=== PATIENT | male | born 1965 | race Caucasian/White ===

== ENCOUNTER 2019-10-29 07:27 | Outpatient (RCR) | payer OTHER, SELFPAY | END 2019-10-29 23:59 | disposition home or self-care (01) | LOC: ANHAUDIO 07:27 | PROVIDERS: PCP Family Medicine Adolescent Medicine; Visit Provider Family Medicine Adolescent Medicine | DX: Z46.1 Encounter for fitting and adjustment of hearing aid (principal) | CPT/HCPCS: 99199 ==

== ENCOUNTER 2023-03-07 00:25 | Day surgery (SDC) | payer BC, SELFPAY ==
[2023-02-28 09:08] VITALS: BMI 23.7
--- NOTE | 2023-03-06 13:12 | PM.HPGS ---
History of Present Illness History of Present Illness Consent: Risks, benefits, and alternatives have been discussed and questions answered. Patient agrees to proceed with procedure. Chief complaint: neoplasm screening Narrative: Kodak Richards is a 57 year old male Referred for colon cancer screening. Review of Systems Review of Systems: All systems reviewed & are unremarkable except as noted in HPI and below PMFSH Surgical History Surgical History History of vasectomy (1997) Social History Social History Smoking status: Never smoker Alcohol intake: current Drinks per week: 6 Alcohol use details: beer Substance use type: does not use Living arrangements: with family Spiritual care concerns: No Meds Home Medications and Allergies Home Medications Medication Instructions Recorded Confirmed Type cholecalciferol (vitamin D3) 25 25 mcg PO DAILY 02/28/23 02/28/23 History mcg (1,000 unit) tablet (Vitamin D3) dutasteride 0.5 mg capsule 0.5 mg PO DAILY 02/28/23 02/28/23 History Allergies Allergy/AdvReac Type Severity Reaction Status Date / Time No Known Allergies Allergy Unknown Verified 03/07/23 07:20 Exam Const: General: alert Orientation/consciousness: patient oriented x3 Resp: Auscultation: clear to auscultation bilaterally Cardio: Rhythm: regular rhythm GI: GI Palp: Yes Soft to palpation and No Tenderness to palpation present (GI) Neuro: General: patient oriented x3 Assessment and Plan Assessment and plan (1) Colon cancer screening: Code(s): Z12.11 - Encounter for screening for malignant neoplasm of colon Status: Acute Assessment and Plan: Colonoscopy with possible biopsy or polypectomy or cautery or injection of substances.
[2023-03-07 07:23] VITALS: BP 122/76; PULSE 63; RESP 18; TEMP 36.1; O2SAT 100
[2023-03-07] MEDS: LACTATED RINGERS 1,000 ML 150 ML IV CONT (07:34)
--- NOTE | 2023-03-07 08:13 | P.PNAN_ITS ---
Anes - Initial Pre Proc Eval Procedure: Operation Date: 03/07/23 08:30 Proposed Procedures p Screening Colonoscopy - Kvng Diez MD Date/Time: 03/07/23 08:13 Surgeon: Kvng Diez MD Pre Op Diagnosis: neoplasm screening Patient Data Age: 57 Gender: M Height: 1.78 m Weight: 73.4 kg Last Vital Signs Temp 96.9 F L 03/07/23 07:23 Pulse 63 03/07/23 07:23 Resp 18 03/07/23 07:23 BP 122/76 03/07/23 07:23 Pulse Ox 100 03/07/23 07:23 O2 Del Method Room Air 03/07/23 07:23 Allergies Allergy/AdvReac Type Severity Reaction Status Date / Time No Known Allergies Allergy Unknown Verified 03/07/23 07:20 Home Medications Medication Instructions Recorded Confirmed Type cholecalciferol (vitamin D3) 25 25 mcg PO DAILY 02/28/23 02/28/23 History mcg (1,000 unit) tablet (Vitamin D3) dutasteride 0.5 mg capsule 0.5 mg PO DAILY 02/28/23 02/28/23 History Patient hx anesthesia problems: none Family hx anesthesia problems: none Results Review: All pre-operative results and documents have been reviewed as part of the pre- operative evaluation. [facility] Surgical History Surgical History History of vasectomy (1997) Social History Social History Smoking status: Never smoker Alcohol intake: current Drinks per week: 6 Alcohol use details: beer Substance use type: does not use Living arrangements: with family Spiritual care concerns: No Anes - Eval Final PreProcedure Day of Procedure 03/07/23 08:13 Patient weight: normal Heart: regular rate and rhythm Lungs: clear to auscultation Airway: Mallampati scale class II Neurological: alert and oriented Last oral intake: >/= 8 hours ASA classification: II Emergent: no Anesthetic plan: proceed Anesthesia type and monitoring: general GIVS and standard monitoring Results Review: All pre-operative results and documents have been reviewed as part of the pre- operative evaluation. Informed Consent: The patient's anesthetic plan and its attendant risks and benefits were discussed with the patient/family/POA. Questions were solicited and answers provided to the satisfaction of the patient/family/POA.
[2023-03-07 08:43] VITALS: BP 92/61; PULSE 66; RESP 20; O2SAT 94
[2023-03-07 08:53] VITALS: BP 93/71; PULSE 67; RESP 22; O2SAT 98
[2023-03-07 09:03] VITALS: BP 105/74; PULSE 64; RESP 19; O2SAT 98
== END 2023-03-07 09:21 | disposition home or self-care (01) ==
PROVIDERS: PCP Family Medicine Adolescent Medicine; Visit Provider Internal Medicine Gastroenterology
PROC: 0DJD8ZZ Inspection of Lower Intestinal Tract, Via Natural or Artificial Opening Endoscopic (ICD-10-PCS; CPT 45378; principal; 2023-03-07 08:30)
DX: Z12.11 Encounter for screening for malignant neoplasm of colon (principal); K57.30 Diverticulosis of large intestine without perforation or abscess without bleeding
CPT/HCPCS: 45378; J2001; J2704; J7120